=== PATIENT | female | born 1955 | race Caucasian/White ===

== ENCOUNTER → 2020-12-31 | Outpatient (CLI) | payer OTHER ==
[~2020-12-31] MED LIST: COZAAR100 MG PO; FLAGYL500 MG PO; HYDROCHLOROTHIA25 M1 PO; HYDROCODON-ACE1 EACH PO; MULTIVITAMINS1 EAC7 PO; NORCO 5-325 TA1 EACH PO; PRILOSEC 20 MG20 MG PO; ZOFRAN ODT4 MG PO
== END ==
LOC: M.ULTRA 07:25
PROVIDERS: ATTEND Family Medicine
DX: K76.0 Fatty (change of) liver, not elsewhere classified (principal)